=== PATIENT | female | born 1965 | race Caucasian/White ===

== ENCOUNTER → 2016-12-06 | Outpatient (CLI) | payer MEDICAID ==
[2016-12-06 15:36] LABS: HEMOGLOBIN 16.5 g/dL (12.2-16.2); LYMPH # 2.9 K/mm3 (0.7-4.5); LYMPH % 28.8 % (10-50.0)
[2016-12-06 16:00] LABS: AMPHETAMINES/METAMPHETAMINES NEGATIVE ng/mL (<1000)
[2016-12-06 16:04] LABS: BUN 9 mg/dL (7-18); GFR (ESTIMATED) 76 ML/MIN (59-)
== END ==
LOC: LAB 14:36
PROVIDERS: Physician Assistant
DX: Z00.00 Encounter for general adult medical examination without abnormal findings (principal); G89.29 Other chronic pain

== ENCOUNTER → 2017-01-25 | Outpatient (CLI) | payer MEDICAID ==
--- NOTE | 2017-01-25 16:08 | RADIOLOGY REPORT PS360 ---
US LIMITED CLINICAL INDICATION: SOFT TISSUE MASSES LOW BACK/GLUTS ORDERING PHYSICIAN: JANA MEDLEY PATIENT AGE: 51 years COMPARISON: None FINDINGS: Ultrasound performed of the left gluteal region. No sonographic abnormality apparent. No cystic or solid mass is evident. IMPRESSION: Negative ultrasound of the left gluteal area
== END ==
LOC: RAD 10:27
DX: R22.2 Localized swelling, mass and lump, trunk (principal)